=== PATIENT | male | born 1990 | race Caucasian/White ===

== ENCOUNTER 2020-07-22 08:41 | Emergency (ER) | payer OTHER ==
[~2020-07-22] VITALS: Ht 175.3 cm; Wt 63.5 kg
[2020-07-22 08:47] VITALS: Ht 175.3 cm; Wt 63.5 kg
[2020-07-22 09:03] VITALS: BP 153/104
== END 2020-07-22 09:03 | disposition home or self-care (01) ==
LOC: ED 08:41
DX: Z02.89 Encounter for other administrative examinations (principal)